=== PATIENT | male | born 1955 | race Hispanic/Latino ===

== ENCOUNTER 2016-12-11 22:17 | Emergency (ER) | payer OTHER ==
[2016-12-11] MEDS ORDERED: TRAMADOL HYDROC50 MG PO (22:59)
[2016-12-11] MEDS ORDERED: EC-NAPROSYN500 MG PO (22:59)
[2016-12-11] MEDS ORDERED: FLEXERIL PO (22:59)
[2016-12-12 00:10] VITALS: BP 142/77
== END 2016-12-12 00:16 | disposition home or self-care (01) | DRG 605 ==
LOC: ED 22:17
PROC: 0HQ1XZZ Repair Face Skin, External Approach (ICD-10-PCS; principal; 2016-12-11)
DX: S01.81XA Laceration without foreign body of other part of head, initial encounter (principal); S09.90XA Unspecified injury of head, initial encounter; S40.012A Contusion of left shoulder, initial encounter; V59.59XA Passenger in pick-up truck or van injured in collision with other motor vehicles in traffic accident, initial encounter; Y92.413 State road as the place of occurrence of the external cause